=== PATIENT | female | born 1975 | race Caucasian/White ===

== ENCOUNTER 2017-08-30 21:26 | Emergency (ER) | payer OTHER | END 2017-08-31 01:11 | disposition other institution (70) | LOC: ED 21:26 | DX: Z02.89 Encounter for other administrative examinations (principal) ==

== ENCOUNTER 2017-08-30 21:26 | Emergency (ER) | payer MEDICAID ==
[~2017-08-30] VITALS: Ht 162.6 cm; Wt 62.6 kg
[2017-08-30 21:28] VITALS: Ht 162.6 cm; Wt 62.6 kg
[2017-08-31 01:11] VITALS: BP 129/78
== END 2017-08-31 01:11 | disposition other institution (70) ==
LOC: ED 21:26
DX: S06.0X9A Concussion with loss of consciousness of unspecified duration, initial encounter (principal); Y04.8XXA Assault by other bodily force, initial encounter; Y93.89 Activity, other specified; Y92.89 Other specified places as the place of occurrence of the external cause; Y99.8 Other external cause status
CPT/HCPCS: Q0092